=== PATIENT | female | born 1975 | race Caucasian/White ===

== ENCOUNTER 2021-01-16 10:09 | Emergency (ER) | payer OTHER, SELFPAY ==
[2021-01-16] MEDS ORDERED: Acetaminophen 500 MG TAB ONE (11:04)
[2021-01-16 22:28] LABS: SARS-CoV-2 PCR by NAA Not Detected (NotDetected)
== END 2021-01-16 12:48 | disposition home or self-care (01) ==
LOC: MADERS 10:09
DX: J20.9 Acute bronchitis, unspecified (principal); Z20.822 Contact with and (suspected) exposure to COVID-19
CPT/HCPCS: 71045; 87804; U0003; U0005